=== PATIENT | female | born 1970 | race Two or more races ===

== ENCOUNTER 2021-02-24 10:27 | Inpatient (IN) | payer MEDICAID, OTHER ==
[~2021-02-24] VITALS: Ht 157.5 cm; Wt 88.5 kg
[2021-02-24] MEDS ORDERED: cefTRIAXone 1GM/50ML D5W 50 ML IV ONE (11:15)
[2021-02-24] MEDS ORDERED: DexAMETHasone SOD PHOS 10MG/1ML VIAL INJ IV ONE (11:15)
[2021-02-24 12:01] LABS: Basophils # (auto) 0.2 10 ^3/uL (0-0.2); Basophils % (auto) 4.2 % (0.0-2.0); Eosinophils # (auto) 0.1 10 ^3/uL (0-0.8); Eosinophils % (auto) 3.1 % (0.0-7.0); Hematocrit 36.2 % (36.0-46.0); Hemoglobin 12.2 g/dL (12.2-16.2); Lymphocytes # (auto) 0.5 10 ^3/uL (0.4-5.4); Lymphocytes % (auto) 12.3 % (10.0-50.0); Mean Corpuscular Hemoglobin 29.9 pg (28.0-32.0); Mean Corpuscular Hgb Conc. 33.8 g/dL (32.0-36.0); Mean Corpuscular Volume 88.5 fL (80.0-100.0); Monocytes # (auto) 0.3 10 ^3/uL (0-1.3); Monocytes % (auto) 6.1 % (0.0-12.0); Neutrophils # (auto) 3.1 10 ^3/uL (1.6-8.6); Neutrophils % (auto) 74.3 % (37.0-80.0); Nucleated Red Blood Cells % 0.2 %; Red Blood Cells 4.09 10^6/uL (4.0-5.20); Red Cell Distribution Width 14.1 % (11.8-14.3); White Blood Cell 4.2 10^3/uL (4.4-10.8)
[2021-02-24 12:19] LABS: Potassium 4.4 mmol/L (3.5-5.1)
[2021-02-24 12:31] LABS: Albumin 3.1 g/dL (3.4-5.0); BUN/Creatinine Ratio 18.5; Bilirubin, Total 0.5 mg/dL (0.2-1.0); CRP High Sensitivity 1.42 mg/dL (< 0.3); Calcium 8.1 mg/dL (8.5-10.1); Total Protein 6.8 g/dL (6.4-8.2)
[2021-02-24] MEDS ORDERED: MORPHINE SULFATE INJECTION 2 MG/ML SYRG IV PRN ×3 (15:00→23:15)
[2021-02-24] MEDS ORDERED: NITROGLYCERIN 0.4 MG SL TAB SL PRN ×2 (15:00→23:15)
[2021-02-24 16:54] VITALS: BP 145/75
[2021-02-24] MEDS ORDERED: METF-372 PO (21:50)
[2021-02-24] MEDS ORDERED: LEVO-451 PO (21:50)
[2021-02-24] MEDS ORDERED: ATOR20TA50 PO (21:50)
[2021-02-24] MEDS ORDERED: GLYB5TAB8 PO (21:50)
[2021-02-24] MEDS ORDERED: LOSA-69 PO (21:50)
[2021-02-24 22:00] VITALS: BP 113/57
[2021-02-24] MEDS ORDERED: DEXTROSE (50%) 50ML SYRG IV PRN (23:00)
[2021-02-24] MEDS ORDERED: hydrALAZINE HCL 20 MG/ML VL IV PRN (23:00)
[2021-02-24] MEDS ORDERED: AZITHROMYCIN 500MG/ 250ML 250 ML IV ONE (23:00)
[2021-02-24] MEDS ORDERED: METOCLOPRAMIDE HCL 5MG/ml INJ 2ml VIAL IV PRN (23:15)
[2021-02-24] MEDS ORDERED: ALUM & MAG HYDROX-SIMETH LIQ(MAALOX) 30 ML PO PRN (23:15)
[2021-02-24] MEDS ORDERED: DOCUSATE SOD 100 MG CAP PO PRN (23:15)
[2021-02-24] MEDS ORDERED: ACETAMINOPHEN 500 MG TAB PO PRN (23:15)
[2021-02-24] MEDS ORDERED: LORazepam 0.5 MG TAB PO PRN (23:15)
[2021-02-24] MEDS ORDERED: REMDESIVIR PER PHARMACY 0 ML IV SCH (23:15)
[2021-02-24] MEDS ORDERED: HYDROcodone-ACET 5/325MG TAB PO PRN (23:15)
[2021-02-25] MEDS: SODIUM CHLORIDE 0.9% 1,000 ML IV SCH ×2 (00:01→17:15)
[2021-02-25 03:04] LABS: Cholesterol 93 mg/dL (< 200); Triglycerides 155 mg/dL (< 150)
[2021-02-25 03:11] LABS: CRP High Sensitivity 1.56 mg/dL (< 0.3); Thyroid Stimulating Hormone 0.86 uIU/mL (0.358-3.74)
[2021-02-25 03:15] LABS: HDL Cholesterol 37 mg/dL (40-59); LDL Cholesterol 43 mg/dL (< 100)
[2021-02-25 05:00] VITALS: BP 123/73
[2021-02-25] MEDS: LEVOTHYROXINE SODIUM 25 MCG TAB PO SCH (06:29)
[2021-02-25] MEDS: InsuLIN REG 1unit/0.01ml Soln (100units/ml) SC SCH ×4 (06:30→21:35)
[2021-02-25] MEDS: ACCU-CHEK COMFORT CURVE STRIP VI SCH ×4 (06:30→21:15)
[2021-02-25 07:05] LABS: Basophils # (auto) 0 10 ^3/uL (0-0.2); Basophils % (auto) 0.3 % (0.0-2.0); Eosinophils # (auto) 0 10 ^3/uL (0-0.8); Eosinophils % (auto) 0.1 % (0.0-7.0); Hemoglobin 11.6 g/dL (12.2-16.2); Lymphocytes # (auto) 0.8 10 ^3/uL (0.4-5.4); Mean Corpuscular Hemoglobin 30.4 pg (28.0-32.0); Mean Corpuscular Hgb Conc. 34.2 g/dL (32.0-36.0); Mean Corpuscular Volume 88.8 fL (80.0-100.0); Monocytes # (auto) 0.4 10 ^3/uL (0-1.3); Neutrophils # (auto) 2.1 10 ^3/uL (1.6-8.6); Neutrophils % (auto) 63.6 % (37.0-80.0); Nucleated Red Blood Cells % 0.2 %; Red Blood Cells 3.83 10^6/uL (4.0-5.20); Red Cell Distribution Width 13.8 % (11.8-14.3); White Blood Cell 3.2 10^3/uL (4.4-10.8)
[2021-02-25 07:19] LABS: Albumin 2.7 g/dL (3.4-5.0); Calcium 7.9 mg/dL (8.5-10.1); Magnesium 2.1 mg/dL (1.6-2.6); Potassium 4.3 mmol/L (3.5-5.1); Uric Acid 5.9 mg/dL (2.6-6.0)
[2021-02-25 07:20] LABS: INR 0.95 (0.9-1.15)
[2021-02-25 07:32] LABS: BUN/Creatinine Ratio 22.7; Bilirubin, Total 0.4 mg/dL (0.2-1.0); Phosphorus 2.4 mg/dL (2.5-4.90); Total Protein 6.2 g/dL (6.4-8.2)
[2021-02-25 08:00] VITALS: BP 116/63
[2021-02-25] MEDS ORDERED: REMDESIVIR 200 MG in NS 210ml LOADING DOSE ADULT IV ONE ×2 (08:00→10:00)
[2021-02-25 09:00] VITALS: BP 111/63
[2021-02-25] MEDS: NIFEdipine ER 30 MG TAB PO SCH ×3 (10:00→21:15)
[2021-02-25] MEDS: BENAZEPRIL HCL 10 MG TAB PO SCH ×3 (10:00→21:14)
[2021-02-25] MEDS: DexAMETHasone SOD PHOS 10MG/1ML VIAL INJ IV SCH (10:00)
[2021-02-25] MEDS ORDERED: AZITHROMYCIN 500MG/ 250ML 250 ML IV SCH (10:00)
[2021-02-25] MEDS: BUDESONIDE (INHALATION) 180 MCG IH IN SCH ×2 (10:00→20:16)
[2021-02-25] MEDS: FAMOTIDINE (10MG/ML) 2ML VL IV SCH ×2 (10:55→21:13)
[2021-02-25] MEDS: ENOXAPARIN SOD 40 MG/0.4 ML SYRINGE SC SCH ×2 (10:55→21:15)
[2021-02-25] MEDS: cefTRIAXone 1GM/50ML D5W 50 ML IV SCH (10:55)
[2021-02-25] MEDS: CHOLECALCIFEROL (VITD3) 2,000 UNIT CAP/TAB PO SCH (10:55)
[2021-02-25] MEDS: ASCORBIC ACID 1,000 MG TAB PO SCH (10:57)
[2021-02-25] MEDS: ASPirin 81 mg TAB PO SCH (10:58)
[2021-02-25] MEDS ORDERED: AZITHROMYCIN 500MG/ 250ML 250 ML IV ONE (11:00)
[2021-02-25] MEDS ORDERED: NEUTRA-PHOS TABLET PO ONE (12:30)
[2021-02-25 13:00] VITALS: BP 126/66
[2021-02-25 17:00] VITALS: BP 127/69
[2021-02-25] MEDS: NEUTRA-PHOS TABLET PO SCH (18:39)
[2021-02-25 19:12] LABS: Urine Bacteria FEW /hpf (None Seen); Urine Blood Negative /uL (Negative); Urine Specific Gravity 1.009 (1.001-1.035); Urine WBC <1 /hpf (0 - 5)
[2021-02-25 19:35] LABS: Alcohol, Urine < 3.0 mg/dL (0-10); Amphetamine Screen, Urine NEGATIVE (NEGATIVE); Barbiturate Scree,Urine NEGATIVE (NEGATIVE); Benzodiazephine Screen, Urine NEGATIVE (NEGATIVE); Cannabinoid Screen, Urine NEGATIVE (NEGATIVE); Cocaine Screen, Urine NEGATIVE (NEGATIVE); Opiate Scree,Urine NEGATIVE (NEGATIVE); Phencyclidine Screen, Urine NEGATIVE (NEGATIVE)
[2021-02-25] MEDS: ALBUTEROL SULF HFA 90MCG INH 200DOSE IN PRN (20:16)
[2021-02-25] MEDS: ATORVASTATIN 20 MG TAB PO SCH (21:13)
[2021-02-25] MEDS: INSULIN LANTUS (GLARGINE) 1 /0.01ml (100units/ml) SC SCH (21:35)
[2021-02-25 22:00] VITALS: BP 124/64
[2021-02-26] MEDS: SODIUM CHLORIDE 0.9% 1,000 ML IV SCH (01:28)
[2021-02-26 05:00] VITALS: BP 130/72
[2021-02-26] MEDS: LEVOTHYROXINE SODIUM 25 MCG TAB PO SCH (05:55)
[2021-02-26] MEDS: ACCU-CHEK COMFORT CURVE STRIP VI SCH ×4 (05:59→21:28)
[2021-02-26] MEDS: InsuLIN REG 1unit/0.01ml Soln (100units/ml) SC SCH ×4 (06:01→21:38)
[2021-02-26] MEDS: INSULIN LANTUS (GLARGINE) 1 /0.01ml (100units/ml) SC SCH ×2 (06:05→21:40)
[2021-02-26] MEDS: ALBUTEROL SULF HFA 90MCG INH 200DOSE IN PRN ×2 (06:12→23:01)
[2021-02-26] MEDS: BUDESONIDE (INHALATION) 180 MCG IH IN SCH ×2 (06:12→22:00)
[2021-02-26 06:51] LABS: Basophils # (auto) 0 10 ^3/uL (0-0.2); Basophils % (auto) 0.2 % (0.0-2.0); Eosinophils # (auto) 0 10 ^3/uL (0-0.8); Hematocrit 32.4 % (36.0-46.0); Hemoglobin 11.3 g/dL (12.2-16.2); Lymphocytes # (auto) 0.8 10 ^3/uL (0.4-5.4); Lymphocytes % (auto) 21.9 % (10.0-50.0); Mean Corpuscular Hemoglobin 30.5 pg (28.0-32.0); Monocytes # (auto) 0.4 10 ^3/uL (0-1.3); Monocytes % (auto) 10.7 % (0.0-12.0); Neutrophils # (auto) 2.6 10 ^3/uL (1.6-8.6); Neutrophils % (auto) 67.2 % (37.0-80.0); Nucleated Red Blood Cells % 0.1 %; Red Blood Cells 3.72 10^6/uL (4.0-5.20); Red Cell Distribution Width 14.2 % (11.8-14.3); White Blood Cell 3.9 10^3/uL (4.4-10.8)
[2021-02-26 07:04] LABS: INR 0.99 (0.9-1.15); Partial Thromboplastin Time 31.9 sec (23.6-33.0)
[2021-02-26 07:07] LABS: Potassium 4.2 mmol/L (3.5-5.1)
[2021-02-26 07:20] LABS: Albumin 2.6 g/dL (3.4-5.0); BUN/Creatinine Ratio 25.5; Bilirubin, Total 0.3 mg/dL (0.2-1.0); Calcium 8.1 mg/dL (8.5-10.1); Phosphorus 2.7 mg/dL (2.5-4.90); Total Protein 5.9 g/dL (6.4-8.2)
[2021-02-26] MEDS: DexAMETHasone SOD PHOS 10MG/1ML VIAL INJ IV SCH (08:00)
[2021-02-26] MEDS: cefTRIAXone 1GM/50ML D5W 50 ML IV SCH (08:00)
[2021-02-26] MEDS: FAMOTIDINE (10MG/ML) 2ML VL IV SCH ×2 (08:00→21:26)
[2021-02-26] MEDS: ASCORBIC ACID 1,000 MG TAB PO SCH (08:01)
[2021-02-26] MEDS: CHOLECALCIFEROL (VITD3) 2,000 UNIT CAP/TAB PO SCH (08:01)
[2021-02-26] MEDS: ASPirin 81 mg TAB PO SCH (08:01)
[2021-02-26] MEDS: AZITHROMYCIN 500MG/ 250ML 250 ML IV SCH (08:01)
[2021-02-26] MEDS: ENOXAPARIN SOD 40 MG/0.4 ML SYRINGE SC SCH ×2 (08:02→21:28)
[2021-02-26 09:00] VITALS: BP 109/59
[2021-02-26] MEDS: NEUTRA-PHOS TABLET PO SCH ×3 (12:04→18:11)
[2021-02-26 13:00] VITALS: BP 106/63
[2021-02-26] MEDS: REMDESIVIR 100mg 100 MG in SODIUM CHL 0.9% 230 ML IV SCH (14:13)
[2021-02-26 17:00] VITALS: BP 131/65
[2021-02-26] MEDS: ATORVASTATIN 20 MG TAB PO SCH (21:26)
[2021-02-26] MEDS: BENAZEPRIL HCL 10 MG TAB PO SCH (21:27)
[2021-02-26] MEDS: NIFEdipine ER 30 MG TAB PO SCH (21:27)
[2021-02-26 22:00] VITALS: BP 123/63
[2021-02-27] MEDS: SODIUM CHLORIDE 0.9% 1,000 ML IV SCH (01:12)
[2021-02-27 05:00] VITALS: BP 112/57
[2021-02-27] MEDS: InsuLIN REG 1unit/0.01ml Soln (100units/ml) SC SCH ×4 (06:08→22:00)
[2021-02-27] MEDS: ACCU-CHEK COMFORT CURVE STRIP VI SCH ×4 (06:08→22:00)
[2021-02-27] MEDS: LEVOTHYROXINE SODIUM 25 MCG TAB PO SCH (06:12)
[2021-02-27] MEDS: INSULIN LANTUS (GLARGINE) 1 /0.01ml (100units/ml) SC SCH ×2 (06:12→22:00)
[2021-02-27] MEDS: ALBUTEROL SULF HFA 90MCG INH 200DOSE IN PRN ×2 (06:13→23:33)
[2021-02-27] MEDS: BUDESONIDE (INHALATION) 180 MCG IH IN SCH ×2 (06:13→19:38)
[2021-02-27 06:33] LABS: Basophils # (auto) 0 10 ^3/uL (0-0.2); Basophils % (auto) 0.1 % (0.0-2.0); Eosinophils # (auto) 0 10 ^3/uL (0-0.8); Eosinophils % (auto) 0.1 % (0.0-7.0); Hematocrit 34.1 % (36.0-46.0); Hemoglobin 11.7 g/dL (12.2-16.2); Lymphocytes # (auto) 1.3 10 ^3/uL (0.4-5.4); Lymphocytes % (auto) 25.6 % (10.0-50.0); Mean Corpuscular Hemoglobin 29.8 pg (28.0-32.0); Mean Corpuscular Hgb Conc. 34.3 g/dL (32.0-36.0); Mean Corpuscular Volume 86.9 fL (80.0-100.0); Monocytes # (auto) 0.5 10 ^3/uL (0-1.3); Monocytes % (auto) 9.3 % (0.0-12.0); Neutrophils # (auto) 3.2 10 ^3/uL (1.6-8.6); Neutrophils % (auto) 64.9 % (37.0-80.0); Nucleated Red Blood Cells % 0.1 %; Red Blood Cells 3.92 10^6/uL (4.0-5.20); Red Cell Distribution Width 13.7 % (11.8-14.3); White Blood Cell 4.9 10^3/uL (4.4-10.8)
[2021-02-27 06:42] LABS: INR 1.03 (0.9-1.15)
[2021-02-27 06:49] LABS: Potassium 4.1 mmol/L (3.5-5.1)
[2021-02-27 06:54] LABS: Albumin 2.6 g/dL (3.4-5.0); BUN/Creatinine Ratio 27.8; Bilirubin, Total 0.4 mg/dL (0.2-1.0); Calcium 7.9 mg/dL (8.5-10.1); Magnesium 2.8 mg/dL (1.6-2.6); Phosphorus 2.9 mg/dL (2.5-4.90); Total Protein 5.4 g/dL (6.4-8.2)
[2021-02-27 08:30] VITALS: BP 100/59
[2021-02-27] MEDS: CHOLECALCIFEROL (VITD3) 2,000 UNIT CAP/TAB PO SCH (09:09)
[2021-02-27] MEDS: ASPirin 81 mg TAB PO SCH (09:10)
[2021-02-27] MEDS: FAMOTIDINE (10MG/ML) 2ML VL IV SCH (09:10)
[2021-02-27] MEDS: ASCORBIC ACID 1,000 MG TAB PO SCH (09:10)
[2021-02-27] MEDS: AZITHROMYCIN 500MG/ 250ML 250 ML IV SCH (09:11)
[2021-02-27] MEDS: DexAMETHasone SOD PHOS 10MG/1ML VIAL INJ IV SCH (09:12)
[2021-02-27] MEDS: ENOXAPARIN SOD 40 MG/0.4 ML SYRINGE SC SCH ×2 (09:13→22:32)
[2021-02-27] MEDS: NEUTRA-PHOS TABLET PO SCH ×3 (09:15→15:55)
[2021-02-27] MEDS: cefTRIAXone 1GM/50ML D5W 50 ML IV SCH (09:17)
[2021-02-27] MEDS ORDERED: CYANOCOBALAMIN 500 MCG TAB PO ONE (12:15)
[2021-02-27] MEDS ORDERED: FUROSEMIDE 20 MG/2 ML VIAL IV ONE (12:15)
[2021-02-27 13:00] VITALS: BP 111/65
[2021-02-27] MEDS: REMDESIVIR 100mg 100 MG in SODIUM CHL 0.9% 230 ML IV SCH (14:35)
[2021-02-27 16:30] VITALS: BP 134/67
[2021-02-27 20:00] VITALS: BP 150/79
[2021-02-27] MEDS: NIFEdipine ER 30 MG TAB PO SCH (22:00)
[2021-02-27] MEDS: ATORVASTATIN 20 MG TAB PO SCH (22:00)
[2021-02-27 22:30] VITALS: BP 150/79
[2021-02-27] MEDS: BENAZEPRIL HCL 10 MG TAB PO SCH (22:32)
[2021-02-28 05:00] VITALS: BP 133/65
[2021-02-28] MEDS: LEVOTHYROXINE SODIUM 25 MCG TAB PO SCH (06:36)
[2021-02-28] MEDS: InsuLIN REG 1unit/0.01ml Soln (100units/ml) SC SCH ×4 (06:36→22:00)
[2021-02-28] MEDS: INSULIN LANTUS (GLARGINE) 1 /0.01ml (100units/ml) SC SCH ×2 (06:36→21:58)
[2021-02-28] MEDS: ACCU-CHEK COMFORT CURVE STRIP VI SCH ×4 (06:36→21:56)
[2021-02-28] MEDS: BUDESONIDE (INHALATION) 180 MCG IH IN SCH ×2 (06:46→22:38)
[2021-02-28] MEDS: ALBUTEROL SULF HFA 90MCG INH 200DOSE IN PRN (06:46)
[2021-02-28] MEDS: NEUTRA-PHOS TABLET PO SCH ×3 (08:33→15:59)
[2021-02-28] MEDS: DexAMETHasone SOD PHOS 10MG/1ML VIAL INJ IV SCH (08:34)
[2021-02-28] MEDS: cefTRIAXone 1GM/50ML D5W 50 ML IV SCH (08:34)
[2021-02-28] MEDS: FUROSEMIDE 20 MG/2 ML VIAL IV SCH (08:38)
[2021-02-28] MEDS: FAMOTIDINE 20 MG TAB PO SCH (08:39)
[2021-02-28] MEDS: ASPirin 81 mg TAB PO SCH (08:39)
[2021-02-28] MEDS: AZITHROMYCIN 500MG/ 250ML 250 ML IV SCH (08:39)
[2021-02-28] MEDS: ENOXAPARIN SOD 40 MG/0.4 ML SYRINGE SC SCH ×2 (08:40→21:56)
[2021-02-28] MEDS: CHOLECALCIFEROL (VITD3) 2,000 UNIT CAP/TAB PO SCH (08:40)
[2021-02-28] MEDS: ASCORBIC ACID 1,000 MG TAB PO SCH (08:40)
[2021-02-28] MEDS: CYANOCOBALAMIN 500 MCG TAB PO SCH (08:40)
[2021-02-28 09:52] LABS: Potassium 3.8 mmol/L (3.5-5.1)
[2021-02-28 09:54] VITALS: BP 146/73
[2021-02-28 10:01] LABS: Albumin 2.5 g/dL (3.4-5.0); BUN/Creatinine Ratio 25.3; Bilirubin, Total 0.5 mg/dL (0.2-1.0); Calcium 7.8 mg/dL (8.5-10.1); Total Protein 5.2 g/dL (6.4-8.2)
[2021-02-28] MEDS: REMDESIVIR 100mg 100 MG in SODIUM CHL 0.9% 230 ML IV SCH (15:40)
[2021-02-28] MEDS: SALINE 0.65 % NASAL SPRAY 45ML BOTTLE EACHNOSTRI SCH ×2 (16:24→21:54)
[2021-02-28 17:54] VITALS: BP 136/72
[2021-02-28] MEDS: ATORVASTATIN 20 MG TAB PO SCH (21:54)
[2021-02-28] MEDS: NIFEdipine ER 30 MG TAB PO SCH (21:55)
[2021-02-28] MEDS: BENAZEPRIL HCL 10 MG TAB PO SCH (21:55)
[2021-02-28 22:00] VITALS: BP 149/70
[2021-03-01 05:00] VITALS: BP 139/68
[2021-03-01] MEDS: INSULIN LANTUS (GLARGINE) 1 /0.01ml (100units/ml) SC SCH ×2 (06:29→21:32)
[2021-03-01] MEDS: LEVOTHYROXINE SODIUM 25 MCG TAB PO SCH (06:29)
[2021-03-01] MEDS: InsuLIN REG 1unit/0.01ml Soln (100units/ml) SC SCH ×4 (06:29→21:31)
[2021-03-01] MEDS: SALINE 0.65 % NASAL SPRAY 45ML BOTTLE EACHNOSTRI SCH ×4 (06:29→21:29)
[2021-03-01] MEDS: ACCU-CHEK COMFORT CURVE STRIP VI SCH ×4 (06:30→21:33)
[2021-03-01] MEDS: BUDESONIDE (INHALATION) 180 MCG IH IN SCH ×2 (06:35→22:00)
[2021-03-01 08:58] VITALS: BP 123/63
[2021-03-01] MEDS: NEUTRA-PHOS TABLET PO SCH ×3 (10:10→17:26)
[2021-03-01] MEDS: cefTRIAXone 1GM/50ML D5W 50 ML IV SCH (10:10)
[2021-03-01] MEDS: DexAMETHasone SOD PHOS 10MG/1ML VIAL INJ IV SCH (10:10)
[2021-03-01] MEDS: CYANOCOBALAMIN 500 MCG TAB PO SCH (10:11)
[2021-03-01] MEDS: FAMOTIDINE 20 MG TAB PO SCH (10:11)
[2021-03-01] MEDS: FUROSEMIDE 20 MG/2 ML VIAL IV SCH (10:11)
[2021-03-01] MEDS: CHOLECALCIFEROL (VITD3) 2,000 UNIT CAP/TAB PO SCH (10:11)
[2021-03-01] MEDS: ASCORBIC ACID 1,000 MG TAB PO SCH (10:11)
[2021-03-01] MEDS: ASPirin 81 mg TAB PO SCH (10:11)
[2021-03-01] MEDS: ENOXAPARIN SOD 40 MG/0.4 ML SYRINGE SC SCH ×2 (10:12→21:32)
[2021-03-01] MEDS: AZITHROMYCIN 500MG/ 250ML 250 ML IV SCH (11:34)
[2021-03-01 13:00] VITALS: BP 124/76
[2021-03-01] MEDS: REMDESIVIR 100mg 100 MG in SODIUM CHL 0.9% 230 ML IV SCH (15:00)
[2021-03-01 17:00] VITALS: BP 111/57
[2021-03-01] MEDS: ATORVASTATIN 20 MG TAB PO SCH (21:29)
[2021-03-01] MEDS: BENAZEPRIL HCL 10 MG TAB PO SCH (21:30)
[2021-03-01] MEDS: NIFEdipine ER 30 MG TAB PO SCH (21:30)
[2021-03-01 21:56] VITALS: BP 133/70
[2021-03-01] MEDS: ALBUTEROL SULF HFA 90MCG INH 200DOSE IN PRN (22:00)
[2021-03-02 05:22] VITALS: BP 109/63
[2021-03-02] MEDS: BUDESONIDE (INHALATION) 180 MCG IH IN SCH ×2 (06:35→19:28)
[2021-03-02] MEDS: SALINE 0.65 % NASAL SPRAY 45ML BOTTLE EACHNOSTRI SCH ×4 (06:40→22:00)
[2021-03-02] MEDS: LEVOTHYROXINE SODIUM 25 MCG TAB PO SCH (06:40)
[2021-03-02] MEDS: ACCU-CHEK COMFORT CURVE STRIP VI SCH ×4 (06:41→22:00)
[2021-03-02] MEDS: InsuLIN REG 1unit/0.01ml Soln (100units/ml) SC SCH ×4 (06:41→22:00)
[2021-03-02] MEDS: INSULIN LANTUS (GLARGINE) 1 /0.01ml (100units/ml) SC SCH ×2 (06:42→22:00)
[2021-03-02 06:49] LABS: Basophils # (auto) 0.1 10 ^3/uL (0-0.2); Basophils % (auto) 0.9 % (0.0-2.0); Eosinophils # (auto) 0 10 ^3/uL (0-0.8); Hematocrit 35.2 % (36.0-46.0); Hemoglobin 12.3 g/dL (12.2-16.2); Lymphocytes % (auto) 18.4 % (10.0-50.0); Mean Corpuscular Hemoglobin 30.1 pg (28.0-32.0); Mean Corpuscular Hgb Conc. 35.1 g/dL (32.0-36.0); Mean Corpuscular Volume 85.8 fL (80.0-100.0); Monocytes # (auto) 0.5 10 ^3/uL (0-1.3); Monocytes % (auto) 9.8 % (0.0-12.0); Neutrophils # (auto) 3.8 10 ^3/uL (1.6-8.6); Neutrophils % (auto) 70.9 % (37.0-80.0); Nucleated Red Blood Cells % 0.1 %; Red Cell Distribution Width 13.9 % (11.8-14.3); White Blood Cell 5.4 10^3/uL (4.4-10.8)
[2021-03-02 07:00] LABS: Albumin 2.7 g/dL (3.4-5.0); Calcium 8.2 mg/dL (8.5-10.1); Magnesium 1.8 mg/dL (1.6-2.6); Potassium 3.8 mmol/L (3.5-5.1)
[2021-03-02 07:03] LABS: BUN/Creatinine Ratio 22.6; Bilirubin, Total 0.7 mg/dL (0.2-1.0); Phosphorus 3.2 mg/dL (2.5-4.90); Total Protein 5.8 g/dL (6.4-8.2)
[2021-03-02] MEDS: ALBUTEROL SULF HFA 90MCG INH 200DOSE IN PRN ×2 (08:38→21:23)
[2021-03-02 09:00] VITALS: BP 107/58
[2021-03-02] MEDS: DexAMETHasone SOD PHOS 10MG/1ML VIAL INJ IV SCH (10:14)
[2021-03-02] MEDS: FUROSEMIDE 20 MG/2 ML VIAL IV SCH (10:14)
[2021-03-02] MEDS: cefTRIAXone 1GM/50ML D5W 50 ML IV SCH (10:14)
[2021-03-02] MEDS: ENOXAPARIN SOD 40 MG/0.4 ML SYRINGE SC SCH ×2 (10:15→22:00)
[2021-03-02] MEDS: CHOLECALCIFEROL (VITD3) 2,000 UNIT CAP/TAB PO SCH (10:15)
[2021-03-02] MEDS: FAMOTIDINE 20 MG TAB PO SCH (10:15)
[2021-03-02] MEDS: ASPirin 81 mg TAB PO SCH (10:15)
[2021-03-02] MEDS: ASCORBIC ACID 1,000 MG TAB PO SCH (10:15)
[2021-03-02] MEDS: CYANOCOBALAMIN 500 MCG TAB PO SCH (10:15)
[2021-03-02] MEDS: AZITHROMYCIN 500MG/ 250ML 250 ML IV SCH (10:54)
[2021-03-02] MEDS: NEUTRA-PHOS TABLET PO SCH ×3 (10:54→18:36)
[2021-03-02 13:00] VITALS: BP 122/76
[2021-03-02 17:00] VITALS: BP 115/69
[2021-03-02 22:00] VITALS: BP 129/69
[2021-03-02] MEDS: ATORVASTATIN 20 MG TAB PO SCH (22:00)
[2021-03-02] MEDS: NIFEdipine ER 30 MG TAB PO SCH (22:00)
[2021-03-02] MEDS: BENAZEPRIL HCL 10 MG TAB PO SCH (22:00)
[2021-03-03 04:46] VITALS: BP 117/65
[2021-03-03] MEDS: ALBUTEROL SULF HFA 90MCG INH 200DOSE IN PRN (05:41)
[2021-03-03] MEDS: SALINE 0.65 % NASAL SPRAY 45ML BOTTLE EACHNOSTRI SCH ×4 (05:41→21:39)
[2021-03-03] MEDS: BUDESONIDE (INHALATION) 180 MCG IH IN SCH ×2 (05:41→22:05)
[2021-03-03] MEDS: LEVOTHYROXINE SODIUM 25 MCG TAB PO SCH (06:07)
[2021-03-03] MEDS: InsuLIN REG 1unit/0.01ml Soln (100units/ml) SC SCH ×4 (06:07→21:55)
[2021-03-03] MEDS: INSULIN LANTUS (GLARGINE) 1 /0.01ml (100units/ml) SC SCH ×2 (06:08→21:55)
[2021-03-03] MEDS: ACCU-CHEK COMFORT CURVE STRIP VI SCH ×4 (06:09→21:42)
[2021-03-03 09:00] VITALS: BP 110/46
[2021-03-03] MEDS: NEUTRA-PHOS TABLET PO SCH ×3 (09:30→18:10)
[2021-03-03] MEDS: CYANOCOBALAMIN 500 MCG TAB PO SCH (09:30)
[2021-03-03] MEDS: ASPirin 81 mg TAB PO SCH (09:30)
[2021-03-03] MEDS: ASCORBIC ACID 1,000 MG TAB PO SCH (09:30)
[2021-03-03] MEDS: FAMOTIDINE 20 MG TAB PO SCH (09:30)
[2021-03-03] MEDS: CHOLECALCIFEROL (VITD3) 2,000 UNIT CAP/TAB PO SCH (09:31)
[2021-03-03] MEDS: FUROSEMIDE 20 MG/2 ML VIAL IV SCH (09:33)
[2021-03-03] MEDS: ENOXAPARIN SOD 40 MG/0.4 ML SYRINGE SC SCH ×2 (09:34→21:42)
[2021-03-03] MEDS: DexAMETHasone SOD PHOS 10MG/1ML VIAL INJ IV SCH (09:34)
[2021-03-03 13:02] VITALS: BP 111/69
[2021-03-03] MEDS ORDERED: InsuLIN REG 1unit/0.01ml Soln (100units/ml) SC ONE (18:00)
[2021-03-03 21:33] VITALS: BP 107/72
[2021-03-03] MEDS: ATORVASTATIN 20 MG TAB PO SCH (21:40)
[2021-03-03] MEDS: BENAZEPRIL HCL 10 MG TAB PO SCH (21:41)
[2021-03-03] MEDS: NIFEdipine ER 30 MG TAB PO SCH (21:42)
[2021-03-04 05:33] VITALS: BP 109/64
[2021-03-04] MEDS: LEVOTHYROXINE SODIUM 25 MCG TAB PO SCH (06:14)
[2021-03-04] MEDS: ACCU-CHEK COMFORT CURVE STRIP VI SCH ×4 (06:14→21:44)
[2021-03-04] MEDS: SALINE 0.65 % NASAL SPRAY 45ML BOTTLE EACHNOSTRI SCH ×4 (06:14→21:41)
[2021-03-04] MEDS: InsuLIN REG 1unit/0.01ml Soln (100units/ml) SC SCH ×4 (06:16→21:43)
[2021-03-04] MEDS: INSULIN LANTUS (GLARGINE) 1 /0.01ml (100units/ml) SC SCH ×2 (06:20→21:43)
[2021-03-04 09:00] VITALS: BP 105/66
[2021-03-04] MEDS: BUDESONIDE (INHALATION) 180 MCG IH IN SCH ×2 (09:32→20:32)
[2021-03-04] MEDS: ALBUTEROL SULF HFA 90MCG INH 200DOSE IN PRN ×2 (09:32→20:32)
[2021-03-04] MEDS: CYANOCOBALAMIN 500 MCG TAB PO SCH (11:31)
[2021-03-04] MEDS: ENOXAPARIN SOD 40 MG/0.4 ML SYRINGE SC SCH ×2 (11:31→21:44)
[2021-03-04] MEDS: ASPirin 81 mg TAB PO SCH (11:31)
[2021-03-04] MEDS: FAMOTIDINE 20 MG TAB PO SCH (11:31)
[2021-03-04] MEDS: CHOLECALCIFEROL (VITD3) 2,000 UNIT CAP/TAB PO SCH (11:31)
[2021-03-04] MEDS: DexAMETHasone SOD PHOS 10MG/1ML VIAL INJ IV SCH (11:32)
[2021-03-04] MEDS: ASCORBIC ACID 1,000 MG TAB PO SCH (11:32)
[2021-03-04] MEDS: FUROSEMIDE 20 MG/2 ML VIAL IV SCH (11:32)
[2021-03-04] MEDS: NEUTRA-PHOS TABLET PO SCH ×2 (11:32→17:29)
[2021-03-04 13:00] VITALS: BP 96/68
[2021-03-04 17:00] VITALS: BP 124/65
[2021-03-04] MEDS: ATORVASTATIN 20 MG TAB PO SCH (21:41)
[2021-03-04] MEDS: BENAZEPRIL HCL 10 MG TAB PO SCH (21:42)
[2021-03-04] MEDS: NIFEdipine ER 30 MG TAB PO SCH (21:44)
[2021-03-04 22:00] VITALS: BP 115/56
[2021-03-05 05:00] VITALS: BP 115/62
[2021-03-05] MEDS: SALINE 0.65 % NASAL SPRAY 45ML BOTTLE EACHNOSTRI SCH ×4 (06:32→22:21)
[2021-03-05] MEDS: InsuLIN REG 1unit/0.01ml Soln (100units/ml) SC SCH ×4 (06:35→22:31)
[2021-03-05] MEDS: ACCU-CHEK COMFORT CURVE STRIP VI SCH ×4 (06:39→22:28)
[2021-03-05] MEDS: INSULIN LANTUS (GLARGINE) 1 /0.01ml (100units/ml) SC SCH ×2 (06:39→22:22)
[2021-03-05] MEDS: LEVOTHYROXINE SODIUM 25 MCG TAB PO SCH (06:39)
[2021-03-05] MEDS: NEUTRA-PHOS TABLET PO SCH ×3 (08:00→18:00)
[2021-03-05 09:00] VITALS: BP 111/68
[2021-03-05] MEDS: ALBUTEROL SULF HFA 90MCG INH 200DOSE IN PRN (09:31)
[2021-03-05] MEDS: BUDESONIDE (INHALATION) 180 MCG IH IN SCH ×2 (09:31→22:23)
[2021-03-05] MEDS: FUROSEMIDE 20 MG/2 ML VIAL IV SCH (10:00)
[2021-03-05] MEDS: DexAMETHasone SOD PHOS 10MG/1ML VIAL INJ IV SCH (10:00)
[2021-03-05] MEDS: ASPirin 81 mg TAB PO SCH (10:00)
[2021-03-05] MEDS: CYANOCOBALAMIN 500 MCG TAB PO SCH (10:00)
[2021-03-05] MEDS: ASCORBIC ACID 1,000 MG TAB PO SCH (10:00)
[2021-03-05] MEDS: CHOLECALCIFEROL (VITD3) 2,000 UNIT CAP/TAB PO SCH (10:00)
[2021-03-05] MEDS: FAMOTIDINE 20 MG TAB PO SCH (10:00)
[2021-03-05] MEDS: ENOXAPARIN SOD 40 MG/0.4 ML SYRINGE SC SCH ×2 (10:00→22:28)
[2021-03-05 13:00] VITALS: BP 114/67
[2021-03-05 17:00] VITALS: BP 117/67
[2021-03-05 21:45] VITALS: BP 119/66
[2021-03-05] MEDS: ATORVASTATIN 20 MG TAB PO SCH (22:26)
[2021-03-05] MEDS: NIFEdipine ER 30 MG TAB PO SCH (22:27)
[2021-03-05] MEDS: BENAZEPRIL HCL 10 MG TAB PO SCH (22:27)
[2021-03-06] MEDS: ACCU-CHEK COMFORT CURVE STRIP VI SCH ×4 (05:07→16:16)
[2021-03-06] MEDS: SALINE 0.65 % NASAL SPRAY 45ML BOTTLE EACHNOSTRI SCH ×3 (05:14→18:33)
[2021-03-06] MEDS: InsuLIN REG 1unit/0.01ml Soln (100units/ml) SC SCH ×5 (05:14→16:14)
[2021-03-06] MEDS: INSULIN LANTUS (GLARGINE) 1 /0.01ml (100units/ml) SC SCH (05:15)
[2021-03-06] MEDS: LEVOTHYROXINE SODIUM 25 MCG TAB PO SCH (05:15)
[2021-03-06 05:42] VITALS: BP 94/60
[2021-03-06] MEDS: NEUTRA-PHOS TABLET PO SCH ×3 (08:42→18:33)
[2021-03-06] MEDS: ASCORBIC ACID 1,000 MG TAB PO SCH (08:46)
[2021-03-06] MEDS: CHOLECALCIFEROL (VITD3) 2,000 UNIT CAP/TAB PO SCH (08:46)
[2021-03-06] MEDS: ASPirin 81 mg TAB PO SCH (08:47)
[2021-03-06] MEDS: CYANOCOBALAMIN 500 MCG TAB PO SCH (08:47)
[2021-03-06] MEDS: DexAMETHasone SOD PHOS 10MG/1ML VIAL INJ IV SCH (08:48)
[2021-03-06] MEDS: FUROSEMIDE 20 MG/2 ML VIAL IV SCH (08:48)
[2021-03-06] MEDS: FAMOTIDINE 20 MG TAB PO SCH (08:49)
[2021-03-06] MEDS: ENOXAPARIN SOD 40 MG/0.4 ML SYRINGE SC SCH ×2 (08:50→09:45)
[2021-03-06 09:00] VITALS: BP 105/66
[2021-03-06] MEDS: ALBUTEROL SULF HFA 90MCG INH 200DOSE IN PRN (09:48)
[2021-03-06] MEDS: BUDESONIDE (INHALATION) 180 MCG IH IN SCH (09:49)
[2021-03-06] MEDS ORDERED: ALBUAER3 IN (10:33)
[2021-03-06 13:00] VITALS: BP 110/59
[2021-03-06 16:07] VITALS: BP 105/66
[2021-03-06 17:00] VITALS: BP 124/69
== END 2021-03-06 18:40 | disposition home or self-care (01) | DRG 177 ==
LOC: ER 10:27 → OVERFLOW 14:48 → EAST 16:57
PROVIDERS: ADMIT Hospitalist; ATTEND Internal Medicine
PROC: XW033E5 Introduction of Remdesivir Anti-infective into Peripheral Vein, Percutaneous Approach, New Technology Group 5 (ICD-10-PCS; principal; 2021-02-26)
DX: U07.1 COVID-19 (principal); J12.82 Pneumonia due to coronavirus disease 2019; J96.01 Acute respiratory failure with hypoxia; N17.9 Acute kidney failure, unspecified; D64.9 Anemia, unspecified; D69.6 Thrombocytopenia, unspecified; E66.01 Morbid (severe) obesity due to excess calories; N18.31 Chronic kidney disease, stage 3a; K75.81 Nonalcoholic steatohepatitis (NASH); I12.9 Hypertensive chronic kidney disease with stage 1 through stage 4 chronic kidney disease, or unspecified chronic kidney disease; D72.819 Decreased white blood cell count, unspecified; E03.9 Hypothyroidism, unspecified; E11.22 Type 2 diabetes mellitus with diabetic chronic kidney disease; E11.40 Type 2 diabetes mellitus with diabetic neuropathy, unspecified; E78.5 Hyperlipidemia, unspecified; E88.09 Other disorders of plasma-protein metabolism, not elsewhere classified; Z23 Encounter for immunization; Z68.37 Body mass index [BMI] 37.0-37.9, adult
CPT/HCPCS: 36415; 36600; 71045; 80053; 80061; 80307; 81001; 82306; 82607; 82728; 82805; 82962; 83036; 83605; 83615; 83735; 83880; 84100; 84443; 84484; 84550; 85025; 85379; 85610; 85730; 86141; 87040; 87086; 87426; 93970; 94640; 96365; 96375; 99291; G0378; J0696; J1100; J1815; J3490